=== PATIENT | female | born 1945 | race Caucasian/White ===

== ENCOUNTER 2021-01-16 17:25 | Emergency (ER) | payer MEDICARE ==
[~2021-01-16] VITALS: Ht 154.9 cm; Wt 73.9 kg
[2021-01-16] MEDS: ONDANSETRON PF 4 MG/2 ML VIAL. IVP ONE (17:59)
--- NOTE | 2021-01-16 17:59 | EKG ---
[address] [address] Test Date: 2021-01-16 Test Time: 17:48:47 Pat Name: DANAE FAGAN Department: Room: Gender: F Data Security Administrator: SHASHA : 1945 Requested By: BOBBI ROBB Order Number: [id number] Reading MD: Measurements Intervals [place] Rate: 104 P: 39 NC: 140 QRS: -52 QRSD: 76 T: 51 QT: 362 QTc: 483 Interpretive Statements SINUS TACHYCARDIA VENTRICULAR PREMATURE COMPLEX(ES) ABNORMAL LEFT AXIS DEVIATION ABNORMAL ECG RI6.02 No previous ECG available for comparison
--- NOTE | 2021-01-16 19:20 | PHYS DOC ---
Past History Past Surgical History: Other Additional Past Surgical Histo: KNEE SURGERY, TOE SURGERY (BOBBI ROBB APRN) Alcohol Use: Occasionally (BOBBI ROBB APRN) General Adult EDM: Chief Complaint: NAUSEA/VOMITING/DIARRHEA HPI: HPI: Patient is a 75-year-old female presents with nausea/vomiting/diarrhea since Thursday. Denies fever. Denies cough, shortness of breath. Patient states "I am worried that I was getting dehydrated because I cannot hardly keep anything down". Denies abdominal pain. (BOBBI ROBB APRN) Review of Systems: Review of Systems: ROS At least 10 ROS systems have been reviewed and are negative except as documented in the HPI. General: Negative except as outlined in HPI above. Skin: Negative except as outlined in HPI above. HEENT: Negative except as outlined in HPI above. Neck: Negative except as outlined in HPI above. Respiratory: Negative except as outlined in HPI above.. Cardiovascular: Negative except as outlined in HPI above. Abdomen: Negative except as outlined in HPI above. : Negative except as outlined in HPI above. Back/MSK: Negative except as outlined in HPI above. Neuro: Negative except as outlined in HPI above. Psych: Negative except as outlined in HPI above. (BOBBI ROBB APRN) Current Medications: Current Meds: Current Medications Medications (Trade) Dose Ordered Sig/Elvia Start Time Stop Time Status Last Admin Dose Admin Ondansetron HCl (Zofran) 4 mg 1X ONCE 01/16/21 17:45 01/16/21 17:46 DC 01/16/21 17:59 4 MG Sodium Chloride 1,000 ml @ 1,000 mls/hr 1X ONCE 01/16/21 19:15 01/16/21 20:14 UNV (BOBBI ROBB APRN) Allergies: Allergies: Allergies Coded Allergies Type Severity Reaction Last Updated Verified Iodinated Contrast Media Allergy Intermediate Rash 01/16/21 Yes (BOBBI ROBB APRN) Physical Exam: PE: Constitutional: Well developed, well nourished, no acute distress, non-toxic appearance. [] HENT: Normocephalic, atraumatic, bilateral external ears normal, oropharynx moist, no oral exudates, nose normal. [] Eyes: PERRLA, EOMI, conjunctiva normal, no discharge. [] Neck: Normal range of motion, no tenderness, supple, no stridor. [] Cardiovascular:Heart rate regular rhythm, no murmur [] Lungs & Thorax: Bilateral breath sounds clear to auscultation [] Abdomen: Bowel sounds normal, soft, no tenderness Skin: Warm, dry, no erythema, no rash. [] Back: No tenderness, no CVA tenderness. [] Extremities: No tenderness, no cyanosis, no clubbing, ROM intact, no edema. [] Neurologic: Alert and oriented X 3, normal motor function, normal sensory function, no focal deficits noted. [] Psychologic: Affect normal, judgement normal, mood normal. [] (BOBBI ROBB APRN) Current Patient Data: Vital Signs: Vital Signs Date Time Temp Pulse Resp B/P (MAP) Pulse Ox O2 Delivery O2 Flow Rate FiO2 01/16/21 17:46 98.4 114 27 151/82 (105) 94 Room Air (BOBBI ROBB APRN) EKG: EKG: [] (BOBBI ROBB APRN) Radiology/Procedures: Radiology/Procedures: [] (BOBBI ROBB APRN) Heart Score: C/O Chest Pain: No Risk Factors: Risk Factors: DM, Current or recent (<one month) smoker, HTN, HLP, family history of CAD, obesity. Risk Scores: Score 0 - 3: 2.5% MACE over next 6 weeks - Discharge Home Score 4 - 6: 20.3% MACE over next 6 weeks - Admit for Clinical Observation Score 7 - 10: 72.7% MACE over next 6 weeks - Early Invasive Strategies (BOBBI ROBB APRN) Course & Med Decision Making: Course & Med Decision Making Pertinent Labs and Imaging studies reviewed. (See chart for details) [] 75-year-old female presents with nausea/vomiting/diarrhea since Thursday. Afebrile. Denies abdominal pain. Patient has tachycardia on arrival. Normal saline bolus given. Patient given 4 mg Zofran. 1 L normal saline bolus. Patient's blood pressure is 180s/100s. Patient unsure of what blood pressure medication she takes at home but has not been able to take any of her medications since Thursday. Patient's heart rate is also still elevated after second liter normal saline bolus. Heart rates in the 1 teens.. Patient given labetalol to help with blood pressure. CT of abdomen pelvis ordered to rule out obstruction. All labs unremarkable. Patient most likely has gastroenteritis. Patient is going to be admitted for intractable nausea and vomiting. I spoke with Dr. Muhammad who will be accepting patient on telemetry. Dr. Muhammad will be updated by Dr. Epps with the CT results. Transfer patient care to Dr. Epps at 2202 (BOBBI ROBB APRN) Course & Med Decision Making Did not see or evaluate patient. Did not discuss patient with MANAGER ACADEMIC. Agree with MANAGER ACADEMIC's work-up and disposition per note (BARRIE EPPS MD) Dragon Disclaimer: Dragon Disclaimer: This electronic medical record was generated, in whole or in part, using a voice recognition dictation system. (BOBBI ROBB APRN) Departure Departure: Impression: Primary Impression: Intractable nausea and vomiting Disposition: ADMITTED INPATIENT Admitting Physician: Taco Muhammad (BOBBI ROBB APRN) Condition: STABLE Referrals: PCP,YOLIS (PCP) BOBBI ROBB APRN Jan 16, 2021 19:20 BARRIE EPPS MD Jan 16, 2021 22:33
[2021-01-16 19:35] LABS: BASO % 1 % (0-3); EOS % 0 % (0-3); HEMATOCRIT 45.9 % (36.0-47.0); HEMOGLOBIN 15.3 g/dL (12.0-15.5); LYMPH # 1.6 x10^3/uL (1.0-4.8); LYMPH % 19 % (24-48); MEAN CORPUSCULAR HEMOGLOBIN 34 pg (25-35); MEAN CORPUSCULAR HGB CONC 33 g/dL (31-37); MEAN CORPUSCULAR VOLUME 100 fL (79-100); MONO # 1.2 x10^3/uL (0.0-1.1); MONO % 15 % (0-9); NEUT # 5.3 x10^3uL (1.8-7.7); NEUT % 65 % (31-73); PLATELET COUNT 123 x10^3/uL (140-400); RED BLOOD COUNT 4.58 x10^6/uL (3.50-5.40); RED CELL DISTRIBUTION WIDTH 13.1 % (11.5-14.5); WHITE BLOOD COUNT 8.2 x10^3/uL (4.0-11.0)
[2021-01-16 19:49] LABS: CALCIUM 8.1 mg/dL (8.5-10.1); CREATININE 0.6 mg/dL (0.6-1.0); GFR 97.7; POTASSIUM 3.5 mmol/L (3.5-5.1)
[2021-01-16 19:55] LABS: ALBUMIN 3.1 g/dL (3.4-5.0); ALBUMIN/GLOBULIN RATIO 0.9 (1.0-1.7); TOTAL BILIRUBIN 0.9 mg/dL (0.2-1.0); TOTAL PROTEIN 6.6 g/dL (6.4-8.2)
[2021-01-16] MEDS: IV NORMAL SALINE 1,000ML 1,000 ML IV ONE ×2 (20:38→21:03)
[2021-01-16] MEDS: diphenhydrAMINE 50 MG/ML VIAL IVP ONE (21:06)
[2021-01-16 21:12] LABS: BILIRUBIN,URINE NEG (NEG); CLARITY,URINE HAZY; COLOR,URINE YELLOW; GLUCOSE,URINE NEG (NEG)
[2021-01-16 21:13] LABS: BACTERIA,URINE FEW /HPF (0-FEW); NITRITE,URINE NEG (NEG); RBC,URINE 0 /HPF (0-2); SQUAMOUS EPITHELIAL CELL,UR FEW /LPF; UROBILINOGEN,URINE 0.2 mg/dL (0.2 mg/dL)
--- NOTE | 2021-01-16 22:21 | RAD ---
CT chest abdomen and pelvis without contrast: History: Nausea vomiting Axial helical images of the chest, abdomen and pelvis were obtained without IV contrast. Comparison: none CT chest without contrast: There is no mediastinal lymphadenopathy or hematoma. There is no hilar lymphadenopathy. Impression: Old T12 vertebral compression fracture seen. There is fat-containing inguinal hernias. The appendix is normal. The gallbladder is fairly distended but appears normal. No acute findings. End Impression CT ABDOMEN and pelvis without IV CONTRAST: Findings: There is a small fat-containing umbilical hernia. Liver: Unremarkable Spleen: Unremarkable Pancreas: Unremarkable Adrenal Glands: Unremarkable Kidneys: Mild prominence the renal pelvises is likely extrarenal pelvises. Evaluation of stomach and bowel is limited without oral contrast. Evaluation of solid organs is limit ed without IV contrast. There is no mass or lymphadenopathy. There is no free air. There is no free fluid. The bladder appears normal. Impression: No acute findings. End impression PQRS Compliance Statement: One or more of the following individualized dose reduction techniques were utilized for this examinat ion: 1. Automated exposure control 2. Adjustment of the mA and/or kV according to patient size 3. Use of iterative reconstruction technique Electronically signed by: Star Lowe III, MD (01/16/2021 10:18 PM) [facility]
[2021-01-16] MEDS: LABETALOL 20 MG/4 ML DISP.SYRIN. IVP ONE (22:54)
[2021-01-16] MEDS: IV NORMAL SALINE 1,000ML 1,000 ML IV SCH (22:57)
[2021-01-16 23:08] VITALS: BP 131/70
[2021-01-16] MEDS: ACETAMINOPHEN 325 MG TABLET PO ONE (23:14)
--- NOTE | 2021-01-16 23:27 | RAD ---
EXAM: CHEST ONE VIEW. HISTORY: Cough, shortness of breath. COMPARISON: None. FINDINGS: A frontal view of the chest is obtained. There are no confluent infiltrates. There is no pneumothorax or pleural effusion. The heart is not en larged. There are atherosclerotic calcifications of the aorta. There is moderate elevation of the rig ht hemidiaphragm. Changes of right rotator cuff repair and rotator cuff arthropathy are noted on the right. IMPRESSION: 1. No confluent infiltrates. Electronically signed by: Nancy Riggins MD (01/16/2021 11:24 PM) [facility]
== END 2021-01-16 23:53 | disposition home or self-care (01) ==
LOC: ER 17:25
DX: R11.2 Nausea with vomiting, unspecified (principal); R19.7 Diarrhea, unspecified
CPT/HCPCS: 36415; 71045; 74176; 80053; 81001; 84484; 85025; 93005; 96361; 96374; 96375; 99285; J1200; J2405; J3490; J7030